=== PATIENT | female | born 2000 | race Caucasian/White ===

== ENCOUNTER 2023-12-02 19:09 | Emergency (ER) | payer BC, OTHER, SELFPAY ==
[2023-12-02 19:22] VITALS: BP 153/94; PULSE 95; RESP 18; TEMP 37; O2SAT 99; BMI 47.2
[2023-12-02 19:51] LABS: Bacteria Urine Occasional (0-1); Culture Indicated Urine Cult Not Indicated; Mucus Urine 2+ (Negative); RBC Urine 0-1/HPF (0-5/HPF); Squamous Epithelial Cell Urine 10-30 /HPF (0-5/HPF); Urine Volume 10mL (spun); WBC Urine 0-1/HPF (0-5/HPF)
--- NOTE | 2023-12-02 20:21 | ED_ITS ---
HPI - Abdominal Pain General Chief Complaint: Abdominal Pain Stated Complaint: GI DR rogers, NVD, GI Bleed Time Seen by Provider: 12/02/23 19:27 Source: patient Mode of arrival: Ambulatory History of Present Illness HPI narrative: 23-year-old female with history of bipolar disorder presents for evaluation of left-sided abdominal pain with nausea, vomiting, diarrhea. Patient states that she has had pain for several months, however it was gradually worsening in intensity. Patient has an upcoming appointment on December 10 with Gastroenterology for the 1st time, however she was referred to the ER today due to her symptoms. Patient also reports several days of blood on the toilet tissue after wiping after having a bowel movement. Patient states that the GI office she was referred to told her to go to the ER to make sure there was ?nothing more sinister going on?. Related Data Previous Rx's Medication Instructions Recorded ondansetron 4 mg disintegrating 4 mg PO Q8H PRN nausea and 12/02/23 tablet vomiting #30 tabs Allergies Allergy/AdvReac Type Severity Reaction Status Date / Time codeine Allergy Hives Verified 12/02/23 19:22 Review of Systems Review of Systems Narrative: see HPI Patient History Social History Smoking Status: Current every day smoker Smoking Status: Current every day smoker tobacco type: vaping alcohol intake frequency: holidays/special occasions only Substance Use Type: marijuana Exam Initial Vital Signs Initial Vital Signs: Vital Signs Temperature 98.6 F 12/02/23 19:22 Pulse Rate 95 H 12/02/23 19:22 Respiratory Rate 18 12/02/23 19:22 Blood Pressure 153/94 H 12/02/23 19:22 Pulse Oximetry 99 12/02/23 19:22 Oxygen Delivery Method Room Air 12/02/23 19:22 Const: Awake, alert, no acute distress, nontoxic appearing, morbidly obese Cardiac: regular rate, regular rhythm RESP: unlabored, clear bilaterally, no wheezing GI: Soft, left upper quadrant and midepigastric tenderness to deep palpation without rebound or guarding MSK: Atraumatic, full range of motion, pulses equal Skin: Warm, Dry, intact, no rashes Neuro: AO x3, CN II-XII grossly intact, moves all extremities Course Orders Ordered: ED Orders 12/02/23 20:21 CT abdomen pelvis w con Stat 05/29/24 20:30 CBC Auto Diff [Complete Blood Count AUTO DIFF] Stat CMP [Comprehensive Metabolic Panel] Stat Lipase Stat Discontinued Medications Sodium Chloride (Normal Saline 0.9%) 1,000 mls @ 1,000 mls/hr IV BOLUS ONE Stop: 12/02/23 21:19 Last Admin: 12/02/23 20:38 Dose: 1,000 mls/hr Documented By: LEFTY Ondansetron HCl (Ondansetron 4 Mg/2 Ml Inj) 4 mg IV NOW ONE Stop: 12/02/23 20:21 Last Admin: 12/02/23 20:37 Dose: 4 mg Documented By: LEFTY Vital Signs Vital signs: Vital Signs - 8 hr 12/02/23 21:42 Blood Pressure 134/76 Pulse Oximetry 98 Oxygen Delivery Method Room Air MDM - Abdominal Pain Lab Data 12/02/23 20:30 12/02/23 20:30 Labs: Lab Results 12/02/23 12/02/23 Range/Units 19:38 20:30 WBC 7.9 (4.5-11.0) X10^3/uL RBC 4.98 (4.0-5.2) X10^6/uL Hgb 14.0 (12.0-16.0) g/dL Hct 41.3 (36-46) % MCV 82.8 (80-100) fL MCH 28.0 (26-34) PG MCHC 33.8 (30-36) % RDW 13.6 (11.6-14.8) % Plt Count 286 (150-400) X10^3/uL Neut % (Auto) 64.8 (50-75) % Lymph % (Auto) 27.0 (25-40) % [place] % (Auto) 6.2 (3-14) % Eos % (Auto) 1.4 L (2-4) % Baso % (Auto) 0.6 (0-2) % Neut # (Auto) 5100 (2409-9657) /uL Lymph # (Auto) 2100 (0584-6580) /uL [place] # (Auto) 500 (0-900) /uL Eos # (Auto) 100 (0-450) /uL Baso # (Auto) 0 (0-100) /uL Sodium 140 (137-145) mmol/L Potassium 3.8 (3.4-5.1) mmol/L Chloride 106 (98-107) mmol/L Carbon Dioxide 28 (22-32) mmol/L BUN 12 (7-17) mg/dL Creatinine 0.94 (0.52-1.04) mg/dL Estimated GFR > 60 (>60) mL/min BUN/Creatinine Ratio 12.8 (6-22) Glucose 92 (70-100) mg/dL Calcium 9.4 (8.4-10.2) mg/dL Total Bilirubin 0.5 (0.2-1.3) mg/dL AST 28 (14-36) IU/L ALT 29 (<35) IU/L Alkaline Phosphatase 89 (38-126) U/L Total Protein 8.0 (6.3-8.2) g/dL Albumin 4.6 (3.5-5.0) g/dL Globulin 3.4 (1.7-4.1) g/dL Albumin/Globulin Ratio 1.4 (1.0-2.8) Lipase 58 (23-300) U/L Urine RBC 0-1/hpf (0-5/HPF) Urine WBC 0-1/hpf (0-5/HPF) Ur Squamous Epith Cells 10-30 /hpf H (0-5/HPF) Urine Bacteria Occasional (0-1) (None) Urine Mucus 2+ H (Negative) Ur Culture Indicated? Cult not indicated Vol Urine Centrifuged 10ml (spun) Point of care testing: Urine Dip Bedside Urine Glucose Negative Bedside Urine Bilirubin - Negative Bedside Urine Ketone - Negative Urine Specific Shiner 1.030 Bedside Urine Occult Blood + Bedside Urine pH 6.0 Bedside Urine Protein - Negative Bedside Urine Urobilinogen - Negative Bedside Urine Nitrite - Negative Bedside Urine Leukocytes - Negative Esterase Imaging Data CT scan - abdomen/pelvis: Radiologist's Impression: PROCEDURE: CT ABDOMEN PELVIS W CON INDICATIONS: UPPER ABD PAIN X MONTHS, PROGRESSIVELY WORSENING TECHNIQUE: After the administration of intravenous contrast, axial sections acquired from the lung bases to the pubic symphysis. Coronal and sagittal reformats were performed. For radiation dose reduction, the following was used: automated exposure control, adjustment of mA and/or kV according to patient size. COMPARISON: None. FINDINGS: Image quality: Diagnostic. Lower Chest: No significant findings. ABDOMEN: Liver: No solid mass. Moderate hepatic steatosis is seen. Gallbladder: No radiopaque gallstones or wall thickening. Biliary ducts: No biliary dilation. Pancreas: No ductal dilation. Spleen: Size is within normal limits. Adrenal Glands: No adrenal nodules. Kidneys and Ureters: No hydronephrosis. No solid mass. No complex renal cystic lesion which requires follow up. Stomach and Bowel: There is no bowel obstruction. No abnormal bowel wall thickening or mesenteric fat stranding. Normal appendix. No abscess collection. Peritoneum: No abnormal intraperitoneal fluid. No free air. Ventral Wall: No significant ventral hernia. Abdominal Nodes: No retroperitoneal or mesenteric adenopathy by size criteria. Vessels: Aorta and inferior vena cava are normal in size. PELVIS: Pelvic Organs: Unremarkable. Bladder: No bladder wall thickening, accounting for underdistention. Pelvic Nodes: No enlarged lymph nodes. Miscellaneous: No inguinal hernias are seen. Bones: No aggressive osseous abnormality. IMPRESSION: 1. No acute inflammatory process is seen in abdomen or pelvis. No bowel obstruction. Normal appendix. No free fluid or free air. 2. No gross abnormality is seen in uterus and bilateral adnexa. 3. Moderate hepatic steatosis. Dictated by: Alonso Schwarz M.D. on 12/02/2023 at 20:43 Approved by: Alonso Schwarz M.D. on 12/02/2023 at 20:46 [facility] Narrative Medical decision making narrative: Well-appearing patient with progressive symptoms. Hemodynamically stable. Abdomen is soft, she does have tenderness in the left upper and midepigastric quadrants of her abdomen. Since she was referred by her GI office labs and imaging to be ordered. IV fluids and Zofran ordered. Laboratory work is reviewed, no abnormalities identified. CT of the abdomen and pelvis shows no acute findings. Mild hepatic steatosis. Patient requested a hard copy of her lab and imaging findings so that she may take them to her GI appointment. A CD of the CT imaging was given to the patient as well as paper copies of her lab results. Zofran sent to pharmacy of choice. Discharge Plan Departure Patient Disposition: Home Clinical Impression: Nausea & vomiting Abdominal pain Qualifiers: Abdominal location: upper abdomen, unspecified Qualified Code(s): R10.10 - Upper abdominal pain, unspecified Instructions: DI for Abdominal Pain-Adult Activity Restrictions/Additional Instructions: You may use the Zofran as needed for nausea and vomiting. Follow up as scheduled with your GI doctor. Prescriptions: New ondansetron 4 mg tablet,disintegrating 4 mg PO Q8H PRN (Reason: nausea and vomiting) Qty: 30 0RF Stand Alone Forms: Patient Portal/API
[2023-12-02] MEDS: ONDANSETRON 4 MG/2 ML INJ IV (20:37)
[2023-12-02] MEDS: SODIUM CHLORIDE 0.9% 1,000 ML 1000 ML IV (20:38)
[2023-12-02 20:44] LABS: Add Manual Diff / Slide Review NO; Basophils Absolute Auto 0 /uL (0-100); Basophils Percent Auto 0.6 % (0-2); Eosinophils Absolute Auto 100 /uL (0-450); Eosinophils Percent Auto 1.4 % (2-4); Hematocrit 41.3 % (36-46); Lymphocytes Absolute Auto 2100 /uL (1100-4500); Mean Corpuscular HGB Conc 33.8 % (30-36); Mean Corpuscular Volume 82.8 fL (80-100); Monocytes Absolute Auto 500 /uL (0-900); Monocytes Percent Auto 6.2 % (3-14); Neutrophils Absolute Auto 5100 /uL (1500-7000); Neutrophils Percent Auto 64.8 % (50-75); Platelet Count 286 X10^3/uL (150-400); Red Blood Cell Count 4.98 X10^6/uL (4.0-5.2); Red Cell Distribution Width 13.6 % (11.6-14.8); White Blood Cell Count 7.9 X10^3/uL (4.5-11.0)
[2023-12-02 20:56] LABS: Alanine Aminotransferase 29 IU/L (<35); Albumin 4.6 g/dL (3.5-5.0); Albumin Globulin Ratio 1.4 (1.0-2.8); Alkaline Phosphatase 89 U/L (38-126); Aspartate Aminotransferase 28 IU/L (14-36); BUN Creatinine Ratio 12.8 (6-22); Bilirubin Total 0.5 mg/dL (0.2-1.3); Blood Urea Nitrogen 12 mg/dL (7-17); Calcium 9.4 mg/dL (8.4-10.2); Carbon Dioxide 28 mmol/L (22-32); Chloride 106 mmol/L (98-107); Estimated Glomerular Filt Rate > 60 mL/min (>60); Globulin 3.4 g/dL (1.7-4.1); Glucose 92 mg/dL (70-100); HEMOLYSIS < 15 (0-50); Lipase 58 U/L (23-300); Potassium 3.8 mmol/L (3.4-5.1); Sodium 140 mmol/L (137-145)
[2023-12-02 21:42] VITALS: BP 134/76; O2SAT 98
== END 2023-12-02 21:42 | disposition home or self-care (01) ==
PROVIDERS: Emergency Provider Emergency Medicine
DX: R10.10 Upper abdominal pain, unspecified (principal); R11.2 Nausea with vomiting, unspecified
CPT/HCPCS: 36415; 74177; 80053; 81003; 81015; 83690; 85025; 96374; 99284; J2405; Q9967

== ENCOUNTER 2024-01-27 13:07 | Day surgery (SDC) | payer BC, OTHER, SELFPAY ==
--- NOTE | 2024-01-27 | PATH_ITS ---
[facility] Accession Number: [id number] No. of containers..04 Tissue . 01 Material submitted: . PART A: gastrointestinal site - STOMACH PART B: esophagus - ESOPHAGUS PART C: colon - RANDOM COLON PART D: colon - COLON POLYP AT 60 . 01 Clinical history: . B: R/O EOE C: DIARRHEA . 01 Diagnosis: Part A: STOMACH: Gastric mucosa with mild chronic inflammation. No Helicobacter organisms identified. No intestinal metaplasia, dysplasia, or malignancy identified. . Part B: ESOPHAGUS: Squamous mucosa with no diagnostic alterations. No evidence of eosinophilic esophagitis. . Part C: RANDOM COLON: Colonic mucosa with no diagnostic alterations. No evidence of colitis. . Part D: COLON POLYP AT 60: Serrated polyp with focal crypt architectural features consistent with sessile serrated adenoma. [facility] 02/01/2024 1448 Local . 01 Electronically signed: . Shorty Salinas MD, Pathologist NPI- [id number] . 01 Gross description: . A. Received in formalin with two patient identifiers and stomach, is a single maurer soft tissue fragment 0.4 cm in greatest dimension. Submitted in cassette A1. . B. Received in formalin with two patient identifiers and esophagus, is a single maurer soft tissue fragment 0.3 cm in greatest dimension. Submitted in cassette B1. . C. Received in formalin with two patient identifiers and random colon, are two maurer soft tissue fragments 0.3 to 0.4 cm in greatest dimension. Submitted in cassette C1. . D. Received in formalin with two patient identifiers and polyp at 60, is a single maurer soft tissue fragment 0.6 cm in greatest dimension. Submitted in cassette D1. ([id number]) /[facility] 02/01/2024 1448 Local . 01 Microscopic: . Part A: STOMACH: An immunohistochemical stain was performed to evaluate for Helicobacter organisms and is negative. The control stains appropriately. * This test was developed and its performance characteristics determined by [employer]. It has not been cleared or approved by the U.S. Food and Drug Administration. The FDA has determined that such clearance or approval is not necessary. This test is used for clinical purposes. It should not be regarded as investigational or for research. . 01 Pathologist provided ICD-10: D12.6, K29.50, R19.7 . 01 CPT . 893987, 973080, 192673, 714937, [id number] Specimen Comment: A courtesy copy of this report has been sent to [phone] Performed at: [address] [facility] [id number] MD Shorty Salinas MD Phone: [phone]
[2024-01-27] MEDS: LACTATED RINGERS 1,000 ML 100 ML IV (13:15)
[2024-01-27 13:47] VITALS: BP 121/86; PULSE 95; RESP 16; TEMP 36.1; O2SAT 96
--- NOTE | 2024-01-27 14:06 | PM.HP.1 ---
History of Present Illness History of Present Illness Chief complaint: [facility] [place] Narrative: Heartburn, nausea, change in bowel movements, rectal bleeding. PFSH Social History Smoking Status: Current every day smoker Meds Home Medications and Allergies Home Medications Medication Instructions Recorded Confirmed Type ondansetron 4 mg disintegrating 4 mg PO Q8H PRN nausea and 12/02/23 Rx tablet vomiting #30 tabs Allergies Allergy/AdvReac Type Severity Reaction Status Date / Time codeine Allergy Hives Verified 12/02/23 19:22 Exam Vital Signs (past 8 hours): - 01/27/24 13:47 Temperature 97 F L Pulse Rate 95 H Respiratory Rate 16 Blood Pressure 121/86 Pulse Oximetry 96 Oxygen Delivery Method Room Air Oxygen Delivery Method Room Air Narrative Exam Narrative: Oropharynx free of lesions Chest clear to auscultation percussion Cardiac exam reveals no S3 or murmur Assessment & Plan Assessment & Plan narrative: Nausea vomiting and heartburn need for upper endoscopy. Risks, benefits, alternatives have been explained. Rectal bleeding and change in bowel movement need for colonoscopy with biopsies. Risks, risks benefits and alternatives have been explained. Time-Based Coding :: [TOTAL MINUTES] spent with patient and on the chart (including review of chart, obtaining history, exam, reviewing outside data, placing orders, documenting exam and treatment plan, and counseling patient) on [DATE].
--- NOTE | 2024-01-27 14:07 | P.OP.EGD&C_ITS ---
Operative Date/Time/Diagnoses Date of procedure: 01/27/24 Pre-op diagnosis: See indication and findings Procedure & Clinicians Study performed: EGD and colonoscopy Indications: Nausea vomiting and heartburn need for upper endoscopy Rectal bleeding and change in bowel movements need for colonoscopy Surgeon: Tonia Joseph Procedure Notes Procedure in detail: After informed consent was obtained the patient was planed stone left lateral decubitus position. The video upper scope was placed into the oropharynx and with the patient's help swallowed into the esophagus. The esophagus stomach and duodenum were carefully examined. On withdrawal, retroflexed view the GE junction was performed. The scope was removed. The patient tolerated procedure well. Patient was then turned and the colonoscope substituted. This was placed the rectum and passed to the cecum. Preparation was good. On slow withdrawal mucos a was carefully examined. The scope was removed. The patient tolerated the procedure well. Blood loss none Complications none Sedation mac Findings EGD 1. Normal esophagus though with possibly a couple of faint rings. Biopsies taken to rule out eosinophilic esophagitis 2. Normal distal esophagus with no evidence for esophagitis and normal squamocolumnar junction 3. Few hematin flecks in the distal stomach but without erosion or ulceration. Biopsies taken to rule out Helicobacter 4. Normal duodenal bulb and sweep Colonoscopy 1. Normal appearing colonic mucosa through the entire colon. Biopsies taken to rule out microscopic colitis 2. Prep and mucus covering the 1.5 cm lesion at 70 cm/splenic flexure. This was injected with saline to raise it and then taken off with the hot snare. It may well be that this larger polyp is a sessile serrated adenoma. Will follow-up on the polyp pathology which will dictate the the recall interval.
[2024-01-27 14:50] VITALS: BP 118/76; PULSE 76; RESP 12; TEMP 36.1; O2SAT 98
[2024-01-27 14:55] VITALS: BP 125/81; PULSE 85; RESP 22; O2SAT 96
[2024-01-27 15:00] VITALS: BP 113/84; PULSE 77; RESP 17; O2SAT 100
[2024-01-27 15:03] VITALS: BP 115/67; PULSE 67; RESP 14; O2SAT 98
== END 2024-01-27 15:18 | disposition home or self-care (01) ==
PROVIDERS: PCP Nurse Practitioner Family; Referring Provider Internal Medicine Gastroenterology; Visit Provider Internal Medicine Gastroenterology
PROC: 0DJ08ZZ Inspection of Upper Intestinal Tract, Via Natural or Artificial Opening Endoscopic (ICD-10-PCS; CPT 45381; principal; 2024-01-27 14:00)
PROC: 0DJD8ZZ Inspection of Lower Intestinal Tract, Via Natural or Artificial Opening Endoscopic (ICD-10-PCS; CPT 45378; 2024-01-27 14:00)
DX: K62.5 Hemorrhage of anus and rectum (principal); R19.4 Change in bowel habit; R11.2 Nausea with vomiting, unspecified; R12 Heartburn; K29.50 Unspecified chronic gastritis without bleeding; D12.6 Benign neoplasm of colon, unspecified
CPT/HCPCS: 45381; 45385; 43239; J2704